=== PATIENT | female | born 1980 | race Caucasian/White ===

== ENCOUNTER 2023-08-06 13:23 | Emergency (ER) | payer OTHER, MEDICARE, BC, MEDICAID ==
[2023-08-06] MEDS: Acetaminophen/HYDROcodone 325-5 MG Tab PO ONE (13:50)
[2023-08-06] MEDS: Bacitracin Oint 1 GM U/D Packet TOP ONE (13:51)
== END 2023-08-06 14:43 | disposition home or self-care (01) ==
LOC: MW.ED 13:23
DX: T24.231A Burn of second degree of right lower leg, initial encounter (principal); T21.02XA Burn of unspecified degree of abdominal wall, initial encounter; X10.2XXA Contact with fats and cooking oils, initial encounter
CPT/HCPCS: 99283; A9270